=== PATIENT | female | born 2000 | race Caucasian/White ===

== ENCOUNTER 2019-02-23 11:47 | Emergency (ER) | payer BC, OTHER ==
[~2019-02-23] VITALS: Ht 165.1 cm; Wt 77.0 kg
[2019-02-23] MEDS ORDERED: MECLIZINE CHEWABLE 25 MG TAB PO ONE (12:30)
[2019-02-23 13:29] LABS: BASOPHILS # (AUTO) 0.02 x10^3/uL (0-0.3); BASOPHILS % (AUTO) 0 % (0-1); EOSINOPHILS # (AUTO) 0.08 x10^3/uL (0-0.8); EOSINOPHILS % (AUTO) 1 % (1-7); LYMPHOCYTES % (AUTO) 26 % (22-44); MD NO; MEAN CORPUSCULAR HEMOGLOBIN 28.4 pg (27.0-34.8); MEAN CORPUSCULAR VOLUME 86.2 fL (80-100); MEAN PLATELET VOLUME 8.4 fL (7.4-10.4); MONOCYTES # (AUTO) 0.48 x10^3/uL (0-1.4); MONOCYTES % (AUTO) 7 % (2-9); NEUTROPHILS # (AUTO) 4.64 x10^3/uL (1.8-8.0); NEUTROPHILS % (AUTO) 66 % (42-75); PLATELET COUNT 299 x10^3/uL (130-400); RED BLOOD COUNT 4.96 x10^6/uL (3.82-5.3); RED CELL DISTRIBUTION WIDTH 13.4 % (9.6-15.2)
[2019-02-23 13:40] VITALS: BP 93/71
[2019-02-23] MEDS ORDERED: MEDR150D3 IM (13:40)
[2019-02-23 13:42] LABS: ANION GAP 6 mmol/L (5-15); CALCIUM 9.1 mg/dL (8.5-10.1); CHLORIDE 110 mmol/L (98-107); CREATININE 0.73 mg/dL (0.55-1.02)
--- NOTE | 2019-02-23 13:45 | NUR ---
ED PA AT BEDSIDE FOR EVAL. CONTINUOUS SPO2 AND CARDIAC MONITORING IN PLACE. VSS. ORTHOSTATIC BP'S COMPLETE. PT'S MOTHER AT BEDSIDE. FALL PRECAUTIONS IN PLACE. CALL LIGHT W/IN REACH, PT INSTRUCTED ON USE, VERBALIZED UNDERSTANDING.
[2019-02-23 13:47] LABS: TROPONIN I < 0.015 ng/mL (0.000-0.045)
[2019-02-23] MEDS ORDERED: MECLIZINE CHEWABLE 25 MG TAB ONE (13:48)
--- NOTE | 2019-02-23 13:53 | NUR ---
Report to CLARISSE Ramirez.
--- NOTE | 2019-02-23 14:19 | NUR ---
PT REPORTS IMPROVEMENT IN S/S W/ MEDICATIONS. DC EDUCATION PROVIDED, PT DEMONSTRATES UNDERSTANDING. PT AMBULATED STEADILY TO DC WITH RN AND MOTHER. MOTHER TO TRANSPORT PT HOME.
== END 2019-02-23 14:21 | disposition home or self-care (01) ==
LOC: ED 14:15
DX: H81.392 Other peripheral vertigo, left ear (principal); H81.12 Benign paroxysmal vertigo, left ear; R94.31 Abnormal electrocardiogram [ECG] [EKG]
CPT/HCPCS: 36415; 71046; 80048; 82040; 84484; 84703; 85025; 85379; 93005; 99284